=== PATIENT | male | born 1980 | race American Indian/Alaskan Native ===

== ENCOUNTER 2019-04-22 04:16 | Emergency (ER) | payer SELFPAY ==
[2019-04-22] MEDS ORDERED: SUMAtriptan SUCCINATE 6 MG/0.5 ML INJ SUB-Q ONE (04:28)
[2019-04-22] MEDS ORDERED: diphenhydrAMINE 50 MG/ML VIAL IV ONE (04:28)
[2019-04-22] MEDS ORDERED: dexAMETHasone 4 MG/ML VIAL IV ONE (04:28)
[2019-04-22] MEDS ORDERED: KETOROLAC 30 MG/1 ML INJ IV ONE (04:28)
[2019-04-22] MEDS ORDERED: SODIUM CHLORIDE 0.9% 1000 ML 1,000 ML IV ONE (04:28)
[2019-04-22] MEDS ORDERED: METOCLOPRAMIDE 10 MG/2 ML INJ IV ONE (04:28)
--- NOTE | 2019-04-22 04:28 | Emergency Department Report ---
<DAVID MAN - Last Filed: 04/22/19 05:32> ED Headache HPI - General Chief Complaint: Headache Stated Complaint: MIGRAINE Time Seen by Provider: 04/22/19 04:24 Source: patient, family (significant other at the bedside), EMS Exam Limitations: no limitations - History of Present Illness Initial Comments: Mr. Meredith is a very pleasant 38-year-old female with history of migraine headaches since adolescence. He could recall migraine headaches since the age of 17. He was followed by headache specialist in [place] prior to moving to [place]. Seen at outside hospital ER several days ago. Given Fioricet. However the headache still returns after 2-3 hours. Excedrin Migraine headache and Fioricet only provide 2-3 hours of relief. He has typical right temporal headache radiating around the ear. He has photophobia and phonophobia. Typically change in weather as a trigger. Fragrances are also a trigger. Timing/Duration: other (5 days) Quality: severe, throbbing Head Injury Location: temporal (right temporal) Recent Head Trauma: frequent headaches Modifying Factors: improves with: cold therapy, exposure to light Associated Symptoms: other (positive nausea) Allergies/Adverse Reactions: Allergies No Known Allergies Allergy (Unverified 04/22/19 04:19) Home Medications: Ambulatory Orders SUMAtriptan SUCCINATE [Imitrex] 50 mg PO BID PRN #6 tab 04/22/19 ED Review of Systems Comment: All other systems reviewed and negative Constitutional: denies: fever, malaise Respiratory: denies: cough Cardiovascular: denies: chest pain Gastrointestinal: nausea Neurological: headache. denies: weakness, numbness, paresthesias, confusion, abnormal gait ED Past Medical Hx - Past Medical History Previous Medical History?: Yes Hx Hypertension: Yes Hx Headaches / Migraines: Yes - Surgical History Past Surgical History?: No - Social History Smoking Status: Current Every Day Smoker Substance Use Type: Alcohol - Medications Home Medications: Home Medications Medication Instructions Recorded Confirmed Last Taken Type SUMAtriptan SUCCINATE [Imitrex] 50 mg PO BID PRN #6 tab 04/22/19 Unknown Rx ED Physical Exam - General Limitations: No Limitations General appearance: alert, in no apparent distress - Head Head exam: Present: atraumatic, normocephalic - Eye Eye exam: Present: normal appearance - ENT ENT exam: Present: mucous membranes moist - Neck Neck exam: Present: normal inspection, full ROM - Respiratory Respiratory exam: Present: normal lung sounds bilaterally. Absent: respiratory distress, wheezes, rales, rhonchi - Cardiovascular Cardiovascular Exam: Present: regular rate, normal rhythm, normal heart sounds. Absent: systolic murmur, diastolic murmur, rubs, gallop - GI/Abdominal GI/Abdominal exam: Present: soft, normal bowel sounds. Absent: distended, tenderness, guarding, rebound - Rectal Rectal exam: Present: deferred - Extremities Exam Extremities exam: Present: normal inspection - Back Exam Back exam: Present: normal inspection - Neurological Exam Neurological exam: Present: alert, oriented X3 - Psychiatric Psychiatric exam: Present: normal affect, normal mood - Skin Skin exam: Present: warm, dry, intact, normal color. Absent: rash ED Medical Decision Making - Medical Decision Making Mr. Meredith is a 38-year-old male with history of migraine headaches for the past 20+ years. He presents with typical migraine headache right temporal throbbing sensation. He received multiple medications including IV ketorolac, IV dexamethasone, IV metoclopramide, IV diphenhydramine, subcutaneous Imitrex and by mouth Deputy. Once pain is improved will be discharged home with Imitrex. ED Disposition Clinical Impression: Migraine headache Disposition: DC-01 TO HOME OR SELFCARE Is pt being admited?: No Does the pt Need Aspirin: No Condition: Stable Instructions: Migraine Headache (ED) Prescriptions: SUMAtriptan SUCCINATE [Imitrex] 50 mg PO BID PRN #6 tab PRN Reason: Headache Referrals: [facility] [Outside] - 3-5 Days ELENA EGAN MD [Staff Physician] - 3-5 Days Forms: Work/School Release Form(ED) <DARIO OSUNA - Last Filed: 04/22/19 14:05> ED Review of Systems ROS: Stated complaint: MIGRAINE Other details as noted in HPI ED Course Vital Signs 04/22/19 04/22/19 04/22/19 04:06 04:16 04:30 Temperature 98.6 F Pulse Rate 74 89 73 Respiratory 14 17 16 Rate Blood Pressure 147/94 141/99 O2 Sat by Pulse 95 100 Oximetry 04/22/19 04/22/19 04/22/19 04:46 05:00 05:15 Temperature Pulse Rate 65 71 75 Respiratory 14 14 14 Rate Blood Pressure 130/73 132/83 147/94 O2 Sat by Pulse 98 99 98 Oximetry 04/22/19 04/22/19 04/22/19 05:30 05:45 06:00 Temperature Pulse Rate 69 84 71 Respiratory 17 12 13 Rate Blood Pressure 117/77 122/85 121/78 O2 Sat by Pulse 100 99 99 Oximetry 04/22/19 04/22/19 04/22/19 06:15 06:30 06:45 Temperature Pulse Rate 73 75 78 Respiratory 13 13 14 Rate Blood Pressure 113/71 112/75 126/87 O2 Sat by Pulse 96 99 99 Oximetry 04/22/19 04/22/19 04/22/19 07:00 07:15 07:30 Temperature Pulse Rate 75 71 76 Respiratory 11 L 11 L 10 L Rate Blood Pressure 112/74 107/68 112/78 O2 Sat by Pulse 98 96 96 Oximetry 04/22/19 07:51 Temperature 98.0 F Pulse Rate Respiratory Rate Blood Pressure O2 Sat by Pulse Oximetry - Reevaluation(s) Reevaluation #1: 04/22/19 07:37 sleeping in stretcher in no acute distress on multiple evaluations Critical care attestation.: If time is entered above; I have spent that time in minutes in the direct care of this critically ill patient, excluding procedure time. ED Disposition Is pt being admited?: No Does the pt Need Aspirin: No
[2019-04-22] MEDS ORDERED: HYDROcodone/ACETAMINOPHEN 5-325 MG TAB PO ONE (05:23)
[2019-04-22] MEDS ORDERED: MORPHINE 4 MG/1 ML INJ IV ONE (05:23)
[2019-04-22] MEDS ORDERED: LIDOCAINE (4%) 40 MG/ML TOPICAL SOLN 50 ML BOTTLE TP ONE (06:37)
[2019-04-22 07:51] VITALS: BP 112/78
== END 2019-04-22 07:50 | disposition home or self-care (01) ==
LOC: ED 04:16
DX: G43.909 Migraine, unspecified, not intractable, without status migrainosus (principal); R55 Syncope and collapse; I10 Essential (primary) hypertension; F17.200 Nicotine dependence, unspecified, uncomplicated; F10.10 Alcohol abuse, uncomplicated; Z79.899 Other long term (current) drug therapy
CPT/HCPCS: 96361; 96372; 96374; 96375; 99284; J1100; J1200; J1885; J2765; J7030; J2270; J3030